=== PATIENT | male | born 1975 | race Caucasian/White ===

== ENCOUNTER 2018-01-24 18:17 | Emergency (ER) | payer OTHER, MEDICAID ==
[2018-01-24] MEDS: ACETAMINOPHEN 500 MG TAB PO (21:07)
[2018-01-24] MEDS: KETOROLAC 60 MG INJ IM (21:07)
== END 2018-01-24 21:59 | disposition home or self-care (01) ==
LOC: FTE 18:17
DX: J11.1 Influenza due to unidentified influenza virus with other respiratory manifestations (principal); F17.210 Nicotine dependence, cigarettes, uncomplicated
CPT/HCPCS: 96372; 99284-25